=== PATIENT | male | born 1990 | race Caucasian/White ===

== ENCOUNTER → 2018-03-11 | Outpatient (CLI) | payer OTHER ==
[~2018-03-11] MED LIST: AMOX500 PO; CODACE30 PO; HYDACE5 PO; IBUP600 PO; IBUP800 PO; Norco 10-325 T1 EACH PO; PROM25 PO; RXCYCL10 PO
[2018-03-11 10:00] LABS: Bilirubin, Urine Neg (Neg); Blood, Urine Neg (Neg); Glucose Qualitative, Urine Neg (Neg); Ketones, Urine Neg (Neg); Leukocyte Esterase, Urine Neg (Neg); Nitrite, Urine Neg (Neg); Protein, Urine Neg (Neg); Specific Gravity, Urine 1.015 (1.003-1.022); Urobilinogen, Urine NORM (Normal)
[2018-03-11 10:17] LABS: Appearance, Urine Clear (Clear); Color, Urine Yellow (P-Yellow)
== END ==
LOC: LAB SHORT 09:48 → LAB 09:48
PROVIDERS: Physician Assistant
DX: R63.1 Polydipsia (principal); R35.8 Other polyuria; R61 Generalized hyperhidrosis
CPT/HCPCS: 81003

== ENCOUNTER 2022-05-01 17:30 | Emergency (ER) | payer OTHER ==
[~2022-05-01] VITALS: Ht 180.3 cm; Wt 81.7 kg
== END 2022-05-01 19:49 | disposition home or self-care (01) ==
LOC: ER 17:30
DX: R51.9 Headache, unspecified (principal); Z53.21 Procedure and treatment not carried out due to patient leaving prior to being seen by health care provider
CPT/HCPCS: 99281